=== PATIENT | male | born 1955 | race Caucasian/White ===

== ENCOUNTER → 2021-12-20 | Outpatient (CLI) | payer OTHER ==
[~2021-12-20] MED LIST: FURO40 PO; Hydrochloroth12.5 MG PO; K-Dur20 MEQ; KETOPROFEN; LOSA25 PO; [UNRECOGNIZED DRUG - OTHER]
[2021-12-20 17:58] LABS: Protein, Urine Quantitative 11.5 mg/dL (0.0-11.9)
[2021-12-20 18:00] LABS: Microalbumin, Urine Quant. 10.9 mg/L (0.000-20.000)
== END ==
LOC: LAB SHORT 06:00 → LAB 06:00 → LAB FUT 12-14 09:00
PROVIDERS: Internal Medicine Nephrology
DX: N18.2 Chronic kidney disease, stage 2 (mild) (principal); D63.1 Anemia in chronic kidney disease; N25.81 Secondary hyperparathyroidism of renal origin; E55.9 Vitamin D deficiency, unspecified; E29.1 Testicular hypofunction; R76.9 Abnormal immunological finding in serum, unspecified; R94.5 Abnormal results of liver function studies; R94.6 Abnormal results of thyroid function studies
CPT/HCPCS: 81050; 82043; 82570; 84156

== ENCOUNTER 2024-03-28 15:42 | Emergency (ER) | payer OTHER ==
[~2024-03-28] VITALS: Ht 170.2 cm; Wt 92.1 kg
[~2024-03-28 15:42] MED LIST changes: +FLOMAX0.4 MG PO; +FLUCONAZOLE TOP; +NEBI5 PO; +TADA10TA
[2024-03-28 15:57] VITALS: BP 158/71
== END 2024-03-28 16:48 | disposition home or self-care (01) ==
LOC: ER 15:42
DX: S52.571A Other intraarticular fracture of lower end of right radius, initial encounter for closed fracture (principal); W10.8XXA Fall (on) (from) other stairs and steps, initial encounter; Z88.7 Allergy status to serum and vaccine; Z91.012 Allergy to eggs; Z79.899 Other long term (current) drug therapy; I10 Essential (primary) hypertension
CPT/HCPCS: 73110; 99283-25

== ENCOUNTER 2024-07-08 06:34 | Day surgery (SDC) | payer OTHER ==
[2024-07-08] VITALS (15 sets, daily range): BP systolic 104–152; BP diastolic 56–88
[~2024-07-08] VITALS: Ht 170.2 cm; Wt 92.8 kg
[~2024-07-08 06:34] MED LIST changes: +ACET500 PO; +Diamox500 MG PO; +FAMO20 PO; -TADA10TA; +TADA10TA PO
[2024-07-08] MEDS ORDERED: Lactated Ringer's 1,000 ML IV SCH ×2 (06:45→07:00)
[2024-07-08] MEDS ORDERED: Bisacodyl 10 MG Supp PR PRN (06:55)
[2024-07-08] MEDS ORDERED: HYDROmorphone HCl/Pf 1MG SYR IV PRN (06:55)
[2024-07-08] MEDS ORDERED: DiphenhydrAMINE HCL 25 MG Cap PO PRN (06:55)
[2024-07-08] MEDS ORDERED: propofoL 20 ML IV ONE ×2 (06:56→09:44)
[2024-07-08] MEDS ORDERED: Ondansetron HCl 2 MG / ML 2ML Vial ONE (06:56)
[2024-07-08] MEDS ORDERED: Metoclopramide HCl 5MG / ML 2ML Vial IV PRN (07:00)
[2024-07-08] MEDS ORDERED: Ondansetron HCl 2 MG / ML 2ML Vial IV PRN (07:00)
[2024-07-08] MEDS ORDERED: Magnesium Hydroxide Conc 10 ML UDC PO PRN (07:00)
[2024-07-08] MEDS ORDERED: propofoL 100 ML IV ONE (07:02)
[2024-07-08] MEDS ORDERED: Promethazine HCl 25 MG Tab PO PRN (07:05)
[2024-07-08] MEDS ORDERED: OxyCODONE HCL 5 MG TAB PO PRN ×2 (07:05)
[2024-07-08] MEDS ORDERED: CeFAZolin Sodium 2,000 MG in NS 100 ML IV SCH ×2 (07:15→16:00)
[2024-07-08] MEDS ORDERED: Vancomycin HCL 1,000 MG in NS 250 ML IV ONE ×2 (07:15→20:00)
[2024-07-08] MEDS ORDERED: CeFAZolin Sodium 2,000 MG VIAL ONE (07:21)
[2024-07-08] MEDS ORDERED: Vancomycin HCl 1000 MG ADDvantage ONE (07:22)
[2024-07-08] MEDS ORDERED: Ropivacaine 0.5% HCl/Pf 123.125 MG,EPINEPHrine HCL 0.25 MG,Ketorolac Tromethamine 15 MG... INFIL SCH (07:30)
[2024-07-08] MEDS ORDERED: Chlorhexidine Mouth Care 15 ML UDC MT SCH (07:30)
[2024-07-08] MEDS ORDERED: OxyCODONE HCL 10 MG TABCR PO SCH (07:30)
[2024-07-08] MEDS ORDERED: Tranexamic Acid 1,000 MG in NS 100 ML IV SCH (07:30)
[2024-07-08] MEDS ORDERED: Midazolam HCl 1MG / ML 2ML Vial IV SCH (07:35)
--- NOTE | 2024-07-08 07:53 | NUR ---
History, Chart, Medications and Allergies reviewed before start of procedure. Pre-Op teaching done. Pt verbalizes understanding. Patient confirms NPO status and agrees with scheduled surgery. PT UNABLE TO REMOVE RING ON L HAND 4TH FINGER. EUFEMIAEY PAPERWORK SIGNED. PT GAVE GLASSES TO AT BS BEFORE GOING BACK TO OR.
[2024-07-08] MEDS ORDERED: Acetaminophen 500 MG Tab PO SCH (08:00)
[2024-07-08] MEDS ORDERED: ePHEDrine Sulfate 50 MG/ML 1ML Injection ONE (08:03)
[2024-07-08] MEDS ORDERED: Phenylephrine HCl 100 MCG/ML-NS 10MLSYR (1MG/10ML) ONE (08:09)
[2024-07-08] MEDS ORDERED: tadalafiL 5 MG Tab PO SCH (09:00)
[2024-07-08] MEDS ORDERED: Tamsulosin HCl 0.4 MG Cap PO SCH (09:00)
[2024-07-08] MEDS ORDERED: Famotidine 20 MG Tab PO SCH (09:00)
[2024-07-08] MEDS ORDERED: Docusate Sodium 100 MG Cap PO SCH (09:00)
[2024-07-08] MEDS ORDERED: Vasopressin 20 UNITS/ML 1ML Vial ONE (09:03)
[2024-07-08] MEDS ORDERED: Ketorolac Tromethamine 30mg Vial ONE (10:55)
[2024-07-08] MEDS ORDERED: Ketorolac Tromethamine 15mg Vial IV SCH (12:00)
[2024-07-08] MEDS ORDERED: Lidocaine 2% Jelly Uro-Jet UR ONE (16:00)
[2024-07-08] MEDS ORDERED: Carvedilol 3.125 MG Tab PO SCH (17:00)
--- NOTE | 2024-07-08 19:58 | NUR ---
SHIFT SUMMARY HAS HAD AN INTERESTING POD 0, AFTER SPINAL WORE OFF WAS UP EASILY. AMBULATED IN ROOM & ATTEMPT TO VOID, BUT REPORTS JUST A DRIBBLE. AFTER AMBULATING SEVERAL X's IN HALLWAY & WORKING w/ THERAPY UNABLE TO HAVE MORE THAN JUST A DRIBBLE. BLADDER SCAN SHOWS >500 mls. 2 ATTEMPTS BY VEHICLE OPERATOR TECHNICIAN TO I/O CATH, UNSUCCESSFUL. AFTER CONTINUING TO VOID SMALL AMOUNTS REPEAT BLADDER SCAN, 375mls. PROSTATE MEDS GIVEN HE HADN'T TAKEN TODAY. HE FEELS THAT EVERY TIME HE URINATES HIS STREAM IS GETTING STRONGER. PLAN TO REPEAT BLADDER SCAN THIS EVENING. PAIN IS WELL CONTROLLED. DENIES NAUSEA & TOLERATING DIET.
[2024-07-09 03:30] VITALS: BP 140/82
--- NOTE | 2024-07-09 04:32 | NUR ---
SHIFT SUMMARY SANDY WAS ALERT AND FULLY ORIENTED ON ASSESMENT. DRESSING TO R KNEE C/D/I. PT HAS MILD PAIN, WELL MANAGED. PT AMBULATING REMARKABLY WELL AT THIS TIME. PT VOIDING FREQUENTLY. SENSATION AND CIRCULATION TO DISTAL R LEG INTACT. NO ACUTE EVENTS, NO NOTED CHANGES TO PT CONDITION.
[2024-07-09 04:46] LABS: BASOPHILS ABSOLUTE AUTO 0.01 K/mm3 (0.00-0.23); BASOPHILS PERCENT AUTO 0 % (0-2); EOSINOPHILS ABSOLUTE AUTO 0.02 K/mm3 (0.00-0.68); EOSINOPHILS PERCENT AUTO 0 % (0-6); Hematocrit 33.3 % (37.0-53.0); Hemoglobin 11.6 g/dL (13.5-17.5); IMMATURE GRAN ABSOLUTE AUTO 0.06 K/mm3 (0.00-0.10); IMMATURE GRAN PERCENT AUTO 1 % (0-1); LYMPHOCYTES ABSOLUTE AUTO 1.33 K/mm3 (0.84-5.20); LYMPHOCYTES PERCENT AUTO 10 % (21-46); MONOCYTES ABSOLUTE AUTO 1.45 K/mm3 (0.16-1.47); MONOCYTES PERCENT AUTO 11 % (4-13); Mean Corpuscular HGB 30.5 pg (26.0-34.0); Mean Corpuscular HGB Conc 34.8 g/dL (31.5-36.5); Mean Corpuscular Volume 88 fL (80-100); Mean Platelet Volume 10.3 fL (9.1-12.4); NEUTROPHILS ABSOLUTE AUTO 10.42 K/mm3 (1.96-9.15); NEUTROPHILS PERCENT AUTO 78 % (41-73); Platelet Count 197 K/mm3 (150-400); RDW Standard Deviation 41.5 fL (35.1-46.3); White Blood Cell Count 13.29 K/mm3 (4.00-11.30)
[2024-07-09 05:02] LABS: Bun/Creatinine Ratio 21.3 (12.0-20.0); Calcium, Blood 8.6 mg/dL (8.5-10.1); Creatinine, Blood 0.99 mg/dL (0.60-1.20); Magnesium, Blood 2.3 mg/dL (1.6-2.4); Potassium, Blood 4.5 mmol/L (3.5-5.5)
[2024-07-09 07:29] VITALS: BP 141/82
--- NOTE | 2024-07-09 08:33 | NUR ---
DR FERRELL IN TO SEE PT.
[2024-07-09] MEDS ORDERED: Trimethoprim/Sulfamethoxazole DS Tab PO SCH (09:00)
[2024-07-09] MEDS ORDERED: Aspirin 81 MG Chew PO SCH (09:00)
[2024-07-09] MEDS ORDERED: ASPI81CH PO (09:01)
[2024-07-09] MEDS ORDERED: SULTRIDS PO (09:02)
[2024-07-09] MEDS ORDERED: PROM25 PO (09:02)
[2024-07-09] MEDS ORDERED: OXYC5 PO (09:02)
[2024-07-09 09:52] VITALS: BP 137/71
--- NOTE | 2024-07-09 10:12 | NUR ---
DISCHARGED PT CLEARED THERAPY. REVIEWED DC INSTRUCTIONS WITH PT; VERBALIZED UNDERSTANDING. PROVIDED AQUACEL DRESSINGS. PT LEFT UNIT IN WC W/POSSESSIONS, DC PAPERWORK, AQUACELS, AND POLAR PACK TO MEET RIDE WAITING OUTSIDE.
== END 2024-07-09 10:15 | disposition home or self-care (01) ==
LOC: ORSCMMR 06:34 → ORD 07:30 → SURS 10:39 → ORD 10:45 → ORSCMMR 07-09 10:15
PROVIDERS: Orthopaedic Surgery
PROC: 0SRC0J9 Replacement of Right Knee Joint with Synthetic Substitute, Cemented, Open Approach (ICD-10-PCS; principal; 2024-07-08 07:30)
DX: M17.11 Unilateral primary osteoarthritis, right knee (principal); I10 Essential (primary) hypertension; N40.0 Benign prostatic hyperplasia without lower urinary tract symptoms; E66.9 Obesity, unspecified; Z68.32 Body mass index [BMI] 32.0-32.9, adult; Z79.899 Other long term (current) drug therapy
CPT/HCPCS: 36415; 73560-RT; 80048; 83735; 85025; 97110; 97116; 97161; 97530; A9270; C1713; C1776; J0171; J0690; J0735; J1885; J2250; J2371; J2405; J2704; J2795; J3370; J7050; J7120

== ENCOUNTER 2025-03-22 06:07 | Day surgery (SDC) | payer OTHER ==
[~2025-03-22] VITALS: Ht 170.2 cm; Wt 90.6 kg
[~2025-03-22 06:07] MED LIST changes: +ASPI81CH PO; +OXYC5 PO; +PROM25 PO; +SULTRIDS PO
[2025-03-22] MEDS ORDERED: CefTRIAXone 2000 MG Vial ONE (06:15)
[2025-03-22] MEDS ORDERED: NS 1,000 ML IV ONE ×2 (06:16→06:27)
[2025-03-22] MEDS ORDERED: Rocuronium Bromide 10 MG/ML 5ML Injection IV ONE (06:56)
[2025-03-22] MEDS ORDERED: Ondansetron HCl 2 MG / ML 2ML Vial ONE (06:56)
[2025-03-22] MEDS ORDERED: Dexamethasone Sod Phos 10 MG/ML 1ML VIAL ONE (06:56)
[2025-03-22] MEDS ORDERED: Midazolam HCl 1MG / ML 2ML Vial ONE (06:57)
[2025-03-22] MEDS ORDERED: FentaNYL Citrate 50 MCG/ML 2 ML Injection ONE (06:57)
[2025-03-22] MEDS ORDERED: Bupivacaine HCl 0.25% 30 ML Injection ONE (06:58)
[2025-03-22] MEDS ORDERED: Glycopyrrolate 0.2 MG/ML 5ML VIAL ONE (06:58)
--- NOTE | 2025-03-22 07:16 | NUR ---
03/22/25 0716 BRANDON PENA pt up with SBA TO BATHROOM. TETO LAM ASSISTED.
[2025-03-22] MEDS ORDERED: ePHEDrine Sulfate 50 MG/ML 1ML Injection ONE (08:10)
[2025-03-22] MEDS ORDERED: Sugammadex Sodium 200 MG/2ML SDV (100 MG/ML) ONE (09:10)
[2025-03-22 10:02] VITALS: BP 132/68
== END 2025-03-22 10:42 | disposition home or self-care (01) ==
LOC: ORSCSDS 06:07
DX: M75.112 Incomplete rotator cuff tear or rupture of left shoulder, not specified as traumatic (principal); M75.42 Impingement syndrome of left shoulder; S46.112A Strain of muscle, fascia and tendon of long head of biceps, left arm, initial encounter; I10 Essential (primary) hypertension; K21.9 Gastro-esophageal reflux disease without esophagitis; Z79.899 Other long term (current) drug therapy
CPT/HCPCS: C1713; J0166; J0696; J1100; J2250; J2405; J2704; J3010; J7030